=== PATIENT | male | born 1960 | race African-American/Black ===

== ENCOUNTER 2017-05-28 14:51 | Emergency (ER) | payer BC, OTHER ==
[2017-05-28 15:08] VITALS: BP 139/85; PULSE 81; TEMP 98.3; BMI 25.1
--- NOTE | 2017-05-28 16:07 | PDOC ---
History of Present Illness - General Chief Complaint: Pain, Acute Stated Complaint: RIGHT SIDE PAIN Time Seen by Provider: 05/28/17 15:33 History Source: Patient Exam Limitations: No Limitations - History of Present Illness Initial Comments: 05/28/17 17:26 Chief complaint: Right sided torso pain Of present illness: Patient is a 56-year-old male with a history of spontaneous pneumothorax from 2013. 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 Patient denies any shortness of breath, sweating, or any palpitations. Patient reports that pain has been present 3 days. Patient denies any other symptoms. Patient reports when he is sitting doing nothing he does not feel any right lateral torso pain. Pain is reproducible with movement of her torso in exam room. Timing/Duration: intermittent (with lifting only) Severity: moderate Associated Symptoms: reports: other (rt. lateral upper torso pain with lifting items for 3 days). denies: chest pain, cough, diaphoresis, fever/chills, headaches, loss of appetite, malaise, nausea/vomiting, seizure, shortness of breath, syncope, weakness Past History - Past Medical History Allergies/Adverse Reactions: Allergies Allergy/AdvReac Type Severity Reaction Status Date / Time No Known Allergies Allergy Verified 05/28/17 15:05 Home Medications: Ambulatory Orders NK [No Known Home Medication] 10/27/14 Hypercholesterolemia: Yes Other medical history: h/o spontaneous pneumothorax 2013 - Immunization History Immunization Up to Date: Yes - Suicide/Smoking/Psychosocial Hx Smoking History: Current every day smoker Have you smoked in the past 12 months: Yes Number of Cigarettes Smoked Daily: 3 Information on smoking cessation initiated: No 'Breaking Loose' booklet given: 04/12/14 Hx Alcohol Use: No Drug/Substance Use Hx: No Substance Use Type: Alcohol Review of Systems - Review of Systems Able to Perform ROS?: Yes Constitutional: No: Symptoms Reported HEENTM: No: Symptoms Reported Respiratory: No: Symptoms reported Cardiac (ROS): No: Symptoms Reported ABD/GI: No: Symptoms Reported : No: Symptoms Reported Musculoskeletal: Yes: Muscle Pain (rt. lateral upper torso pain with lifting items x 3 days) Integumentary: No: Symptoms Reported Neurological: No: Symptoms reported *Physical Exam - Vital Signs Last Vital Signs Temp Pulse Resp BP Pulse Ox 98.3 F 81 20 139/85 98 05/28/17 15:05 05/28/17 15:05 05/28/17 15:05 05/28/17 15:05 05/28/17 15:05 - Physical Exam General Appearance: Yes: Appropriately Dressed Respiratory/Chest: positive: Lungs Clear, Normal Breath Sounds. negative: Chest Tender, Respiratory Distress Cardiovascular: positive: Regular Rhythm, Regular Rate, S1, S2 Musculoskeletal: positive: Other (rt. lateral torso minimal tenderness with palpation). negative: CVA Tenderness, CVA Tenderness (R), CVA Tenderness (L), Vertebral Tenderness Integumentary: positive: Normal Color Neurologic: positive: Fully Oriented, Alert, Normal Response, Responsive Medical Decision Making - Medical Decision Making 05/28/17 17:28 05/28/17 17:28 Patient is a 56-year-old male with a history of spontaneous pneumothorax from 2013. 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 Patient denies any shortness of breath, sweating, or any palpitations. Patient reports that pain has been present 3 days. Patient denies any other symptoms. Patient reports when he is sitting doing nothing he does not feel any right lateral torso pain. Pain is reproducible with movement of her torso in exam room. rt. lateral torso pain r/o pneumothorax PLAN: xray chest PA/latera no pneumothorax noted or acute pathology per Dr. Salas 01/07 17:47 pt. to follow up with primary care provider Avoid lifting any heavy items 05/29/17 11:57 *DC/Admit/Observation/Transfer Diagnosis at time of Disposition: Tenderness of torso - Discharge Dispostion Disposition: HOME Condition at time of disposition: Stable - Referrals Referrals: Ron Ivory MD [Primary Care Provider] - - Patient Instructions Additional Instructions: Avoid any heavy lifting of items turn whole torso in direction that you are putting any items Take ibuprofen as needed as directed by marketing community liaison for pain Follow-up with your primary care provider within the next couple of days Return to emergency room if any shortness of breath, or worsening pain Patient voiced understanding of discharge instructions and all questions are answered
== END 2017-05-28 17:35 | disposition home or self-care (01) ==
LOC: JER 14:51
DX: R07.89 Other chest pain (principal); F17.210 Nicotine dependence, cigarettes, uncomplicated; E78.00 Pure hypercholesterolemia, unspecified
CPT/HCPCS: 71020-TC; 99282-25

== ENCOUNTER 2017-09-29 14:48 | Emergency (ER) | payer OTHER ==
[2017-09-29 15:18] VITALS: TEMP 98.2; BMI 26.4
--- NOTE | 2017-09-29 15:20 | PDOC ---
[facility]apid [facility] Evaluation Time Seen by Provider: 09/29/17 15:16 Medical Evaluation: Allergies Allergy/AdvReac Type Severity Reaction Status Date / Time No Known Allergies Allergy Verified 09/29/17 15:16 09/29/17 15:17 57 year old male smoker with history of right PTX s/p chest tube presenting with one week of intermittent right-sided pain, itching in character, 10/10. No shortness of breath. -V/s unremarkable -Breath sounds present and equal bilaterally -CXR -To Main ED for further evaluation
--- NOTE | 2017-09-29 18:11 | PDOC ---
History of Present Illness - General Chief Complaint: Pain, Acute Stated Complaint: RT SIDE PAIN Time Seen by Provider: 09/29/17 15:16 History Source: Patient Exam Limitations: No Limitations - History of Present Illness Initial Comments: 09/29/17 18:00 57-year-old male with history of pneumothorax 2 to the right lobe presents to ED with complaints of itching at the incisional site since this morning and concern since he wants to make sure he does not have a pneumothorax. Patient denies difficulty breathing, irregular breathing, orthopnea, change in chest shape. Patient states did not go his PCP and decided come to the ER for further evaluation. Timing/Duration: 4-6 hours, intermittent Severity: mild Associated Symptoms: reports: denies symptoms Past History - Travel Traveled outside of the country in the last 30 days: No - Past Medical History Allergies/Adverse Reactions: Allergies Allergy/AdvReac Type Severity Reaction Status Date / Time No Known Allergies Allergy Verified 09/29/17 15:16 Home Medications: Ambulatory Orders NK [No Known Home Medication] 10/27/14 Hypercholesterolemia: Yes - Immunization History Immunization Up to Date: Yes - Suicide/Smoking/Psychosocial Hx Smoking History: Current every day smoker Have you smoked in the past 12 months: Yes Number of Cigarettes Smoked Daily: 3 Information on smoking cessation initiated: No 'Breaking Loose' booklet given: 04/12/14 Hx Alcohol Use: No Drug/Substance Use Hx: No Substance Use Type: Alcohol Patient Lives Alone: No Lives with/in: spouse/SO Review of Systems - Review of Systems Able to Perform ROS?: Yes Constitutional: No: Symptoms Reported HEENTM: No: Symptoms Reported Respiratory: No: Symptoms reported Cardiac (ROS): No: Symptoms Reported ABD/GI: No: Symptoms Reported Musculoskeletal: No: Symptoms Reported Integumentary: Yes: Pruritus Neurological: No: Symptoms reported *Physical Exam - Vital Signs Last Vital Signs Temp Pulse Resp BP Pulse Ox 98.2 F 89 18 129/86 98 09/29/17 15:16 09/29/17 15:16 09/29/17 15:16 09/29/17 15:16 09/29/17 15:16 - Physical Exam General Appearance: Yes: Nourished, Appropriately Dressed. No: Apparent Distress Respiratory/Chest: positive: Lungs Clear, Normal Breath Sounds. negative: Respiratory Distress, Accessory Muscle Use, Labored Respiration, Decreased Breath Sounds, Dullness Cardiovascular: positive: Regular Rhythm, Regular Rate. negative: Murmur Gastrointestinal/Abdominal: positive: Soft. negative: Tenderness Extremity: positive: Normal Capillary Refill. negative: Pedal Edema Integumentary: positive: Normal Color, Warm, Moist, Other (2 healed dry incisions to the right chest near the axillary line) Neurologic: positive: Motor Strength 5/5 (ambulatory) Medical Decision Making - Medical Decision Making 09/29/17 18:09 Patient here with complaints of itching to the incisional sites from where he had chest tubes placed secondary to pneumothorax. Patient has no other complaints at this time. Patient ordered a chest x-ray from rapid medical evaluation provider. Patient's x-ray reviewed upon my arrival which showed no signs of pneumonia, pneumothorax or other acute findings. Patient be discharged home with recommendations to use moisturizing cream to dry area *DC/Admit/Observation/Transfer Diagnosis at time of Disposition: Dry skin - Discharge Dispostion Disposition: HOME Condition at time of disposition: Good - Referrals - Patient Instructions Printed Discharge Instructions: DI for Itching Additional Instructions: Apply moisturizing cream to the area twice a day to alleviate your symptoms. - Post Discharge Activity
[2017-09-29 18:16] VITALS: BP 159/103; PULSE 86
== END 2017-09-29 18:17 | disposition home or self-care (01) ==
LOC: JER 14:48
DX: L85.3 Xerosis cutis (principal); F17.210 Nicotine dependence, cigarettes, uncomplicated; Z87.09 Personal history of other diseases of the respiratory system
CPT/HCPCS: 71046-TC-FY; 99281-25

== ENCOUNTER 2018-02-15 16:35 | Emergency (ER) | payer OTHER ==
[2018-02-15 16:56] VITALS: BMI 24.6
[2018-02-15] MEDS ORDERED: ACETAMINOPHEN 325 MG TABLET (FP) PO ONE (16:57)
--- NOTE | 2018-02-15 16:59 | PDOC ---
[facility] Medical Evaluation Medical Evaluation: Allergies Allergy/AdvReac Type Severity Reaction Status Date / Time No Known Allergies Allergy Verified 02/15/18 16:53 02/15/18 16:53 I have performed a brief in-person evaluation of this patient. The patient presents with a chief complaint of: lower abd pain since today, L>R , no abd surgeries, no f/c, n/v/d, last BM today Pertinent physical exam findings: ++ tenderness in lower abd, mainly Left side, febrile I have ordered the following:UA/labs sent/tylenol The patient will proceed to the ED for further evaluation. 02/15/18 16:57 <Rupali Bernardo - Last Filed: 02/15/18 16:53> Medical Evaluation: Allergies Allergy/AdvReac Type Severity Reaction Status Date / Time No Known Allergies Allergy Verified 02/15/18 16:53 Vital Signs Temp Pulse Resp BP Pulse Ox 100.0 F H 114 H 18 116/83 100 02/15/18 16:53 02/15/18 16:53 02/15/18 16:53 02/15/18 16:53 02/15/18 16:53 <Kaykay Mallory - Last Filed: 02/15/18 20:49> Time Seen by Provider: 02/15/18 16:53
[2018-02-15] MEDS ORDERED: ACETAMINOPHEN 325 MG TABLET (FP) ONE ×2 (19:15→21:15)
[2018-02-15 19:35] LABS: HEMATOCRIT 41.8 % (35.4-49); HEMOGLOBIN 14.1 GM/dL (11.7-16.9); MCH 32.5 pg (25.7-33.7); MCHC 33.7 g/dl (32.0-35.9); MEAN CELL VOLUME 96.3 fl (80-96); PLATELET COUNT 233 K/MM3 (134-434); RBC 4.34 M/mm3 (4.00-5.60); RDW 13.1 % (11.9-15.9); WHITE BLOOD COUNT 16.2 K/mm3 (4.0-10.0)
[2018-02-15 19:52] LABS: INR 1.06 (0.82-1.09)
[2018-02-15 20:03] LABS: URINE APPEARANCE CLEAR; URINE BILIRUBIN NEGATIVE (<2.0 mg/dL); URINE COLOR YELLOW; URINE GLUCOSE (UA) NEGATIVE (NEGATIVE); URINE KETONE NEGATIVE (NEGATIVE); URINE LEUK ESTERASE NEGATIVE (NEGATIVE); URINE NITRITE NEGATIVE (NEGATIVE); URINE PROTEIN NEGATIVE (NEGATIVE)
[2018-02-15 20:11] LABS: ALK PHOS 76 U/L (45-117); ANION GAP 9 (8-16); BILIRUBIN,DIRECT 0.2 mg/dL (0.0-0.2); BILIRUBIN,TOTAL 0.9 mg/dL (0.2-1.0); BLOOD UREA NITROGEN 12 mg/dL (7-18); CHLORIDE 104 mmol/L (98-107); CO2 25 mmol/L (21-32); GLUCOSE,RANDOM 129 mg/dL (74-106); POTASSIUM 4.1 mmol/L (3.5-5.1); SGOT/AST 42 U/L (15-37); SGPT/ALT 56 U/L (12-78); SODIUM 138 mmol/L (136-145); TOT PROT 7.4 g/dl (6.4-8.2)
[2018-02-15] MEDS ORDERED: SODIUM CHLORIDE 1,000 ML IV STA (20:50)
--- NOTE | 2018-02-15 20:50 | PDOC ---
History of Present Illness - General History Source: Patient, Old Records Exam Limitations: No Limitations - History of Present Illness Initial Comments: 02/15/18 20:50 The patient is a 58 year old male with a past medical history hyperlipidemia and spontaneous pneumothorax who presents to the emergency department with fever and abdominal pain for 10 hours. The patient describes his abdominal pain as bilateral lower. He reports that his fever is Tmax 100. He endorses associated diaphoresis. He denies diarrhea, vomiting, nausea, and back pain. Surgical History: No history of abdominal surgeries <Kevin Mohr - Last Filed: 02/15/18 23:59> <Kaykay Mallory - Last Filed: 02/16/18 00:32> - General Chief Complaint: Pain Stated Complaint: STOMACH PAIN Time Seen by Provider: 02/15/18 16:53 Past History <Kevin Mohr - Last Filed: 02/15/18 23:59> - Past Medical History COPD: No Hypercholesterolemia: Yes - Immunization History Immunization Up to Date: Yes - Suicide/Smoking/Psychosocial Hx Smoking History: Current every day smoker Have you smoked in the past 12 months: Yes Number of Cigarettes Smoked Daily: 3 Cigars Per Day: 2 Information on smoking cessation initiated: Yes 'Breaking Loose' booklet given: 02/15/18 Hx Alcohol Use: No Drug/Substance Use Hx: No Substance Use Type: Alcohol <Kaykay Mallory - Last Filed: 02/16/18 00:32> - Past Medical History Allergies/Adverse Reactions: Allergies Allergy/AdvReac Type Severity Reaction Status Date / Time No Known Allergies Allergy Verified 02/15/18 16:53 Home Medications: Ambulatory Orders levoFLOXacin [Levaquin -] 500 mg PO DAILY #7 tablet 02/16/18 metroNIDAZOLE [Flagyl -] 250 mg PO TID #21 tablet 02/16/18 Review of Systems - Review of Systems Able to Perform ROS?: Yes Comments:: 02/15/18 20:50 CONSTITUTIONAL: (+) Fever, diaphoresis Absent: no chills, no fatigue EYES: Absent: visual changes ENT: Absent: ear pain, no sore throat CARDIOVASCULAR: Absent: chest pain, no palpitations RESPIRATORY: Absent: cough, no SOB GI: (+) Abdominal pain Absent: no nausea, no vomiting, no constipation, no diarrhea GENITOURINARY: Absent: dysuria, no frequency, no hematuria MUSCULOSKELETAL: Absent: back pain, no arthralgia, no myalgia SKIN: Absent: rash NEURO: Absent: headache <Kevin Mohr - Last Filed: 02/15/18 23:59> *Physical Exam - Vital Signs Last Vital Signs Temp Pulse Resp BP Pulse Ox 100.0 F H 114 H 18 116/83 100 02/15/18 16:53 02/15/18 16:53 02/15/18 16:53 02/15/18 16:53 02/15/18 16:53 - Physical Exam Comments: 02/15/18 20:51 GENERAL: Well-appearing, well-nourished. No apparent distress. HEENT: Normocephalic, atraumatic. PERRL, EOM intact. CARDIOVASCULAR: Normal S1, S2. Regular rate and rhythm. PULMONARY: Clear to auscultation bilaterally. ABDOMEN: Soft, non-distended, non-tender. EXTREMITIES: Normal ROM in all four extremities. No gross deformities. SKIN: Warm, dry. No rash NEUROLOGICAL: No focal neurological deficits. <Kevin Mohr - Last Filed: 02/15/18 23:59> - Vital Signs Last Vital Signs Temp Pulse Resp BP Pulse Ox 100.0 F H 114 H 18 116/83 100 02/15/18 16:53 02/15/18 16:53 02/15/18 16:53 02/15/18 16:53 02/15/18 16:53 <Kaykay Mallory - Last Filed: 02/16/18 00:32> ED Treatment Course - LABORATORY CBC & Chemistry Diagram: 02/15/18 19:23 02/15/18 19:23 - ADDITIONAL ORDERS Additional order review: Laboratory Results 02/15/18 02/15/18 02/15/18 19:25 19:23 19:23 PT with INR 12.00 INR 1.06 Sodium 138 Potassium 4.1 Chloride 104 Carbon Dioxide 25 Anion Gap 9 BUN 12 Creatinine 1.0 Creat Clearance w eGFR > 60 Random Glucose 129 H Calcium 9.0 Total Bilirubin 0.9 Direct Bilirubin 0.2 AST 42 H D ALT 56 D Alkaline Phosphatase 76 Total Protein 7.4 Albumin 4.0 Urine Color Yellow Urine Appearance Clear Urine pH 5.0 Ur Specific [place] 1.020 Urine Protein Negative Urine Glucose (UA) Negative Urine Ketones Negative Urine Blood Negative Urine Nitrite Negative Urine Bilirubin Negative Urine Urobilinogen 2.0 Ur Leukocyte Esterase Negative 02/15/18 19:23 RBC 4.34 MCV 96.3 H MCHC 33.7 RDW 13.1 MPV 9.0 - RADIOLOGY Radiograph Interpretation: 02/16/18 00:01 EXAM: ABDOMEN \T\ PELVIS CT WITH CONTR HISTORY: Fever and low abdominal pain COMPARISON: None. FINDINGS: A small left lower lobe bulla and mild bibasilar subsegmental atelectasis The visualized cardiac chambers are normal size and configuration. Normal liver, gallbladder, pancreas, spleen, adrenal glands and kidneys. The stomach and small bowel are normal. There is mild inflammation of the sigmoid colon with associated diverticulosis, consistent with diverticulitis. No bowel obstruction abscess or free air. There is no aortic aneurysm. There is no significant retroperitoneal lymphadenopathy. The appendix is normal. The urinary bladder and prostate gland are normal. Small amount of CONFIDENTIALITY NOTICE: This information is intended only for the use of the recipient(s) named above. If you are not the intended recipient, or a person responsible for delivering it to the intended recipient, you are hereby notified that any disclosure, copying, distribution or use of any of the information contained in or attached to this transmission is STRICTLY PROHIBITED. If you have received this transmission in error, please immediately notify [facility] and destroy the original transmission and its attachments without saving them in any manner pelvic free fluid is identified. There is no significant pelvic lymphadenopathy. IMPRESSION: Uncomplicated mild sigmoid diverticulitis. Individualized dose optimization techniques were used for this CT. THIS DOCUMENT HAS BEEN ELECTRONICALLY SIGNED Marques Solis MD 02/15/2018 23:53 EST - Medications Given in the ED: ED Medications Discontinued Medications Generic Name Dose Route Start Last Admin Trade Name Freq PRN Reason Stop Dose Admin Acetaminophen 650 mg 02/15/18 16:57 02/15/18 19:17 Tylenol - PO 02/15/18 16:58 650 mg ONCE ONE Administration <Kevin Mohr - Last Filed: 02/15/18 23:59> - LABORATORY CBC & Chemistry Diagram: 02/15/18 19:23 02/15/18 19:23 - ADDITIONAL ORDERS Additional order review: Laboratory Results 02/15/18 02/15/18 02/15/18 19:25 19:23 19:23 PT with INR 12.00 INR 1.06 Sodium 138 Potassium 4.1 Chloride 104 Carbon Dioxide 25 Anion Gap 9 BUN 12 Creatinine 1.0 Creat Clearance w eGFR > 60 Random Glucose 129 H Calcium 9.0 Total Bilirubin 0.9 Direct Bilirubin 0.2 AST 42 H D ALT 56 D Alkaline Phosphatase 76 Total Protein 7.4 Albumin 4.0 Urine Color Yellow Urine Appearance Clear Urine pH 5.0 Ur Specific [place] 1.020 Urine Protein Negative Urine Glucose (UA) Negative Urine Ketones Negative Urine Blood Negative Urine Nitrite Negative Urine Bilirubin Negative Urine Urobilinogen 2.0 Ur Leukocyte Esterase Negative 02/15/18 19:23 RBC 4.34 MCV 96.3 H MCHC 33.7 RDW 13.1 MPV 9.0 - RADIOLOGY Radiology Studies Ordered: Category Date Time Status ABDOMEN & PELVIS CT WITH CONTR [CT] Stat CT Scan 02/15/18 20:37 Ordered - Medications Given in the ED: ED Medications Discontinued Medications Generic Name Dose Route Start Last Admin Trade Name Freq PRN Reason Stop Dose Admin Acetaminophen 650 mg 02/15/18 16:57 02/15/18 19:17 Tylenol - PO 02/15/18 16:58 650 mg ONCE ONE Administration <Kaykay Mallory - Last Filed: 02/16/18 00:32> Medical Decision Making - Medical Decision Making 02/16/18 00:04 57-year-old male who denies any significant past medical history presents with 1 day of lower abdominal pain and fever. His primary care doctor's Dr. Tacho Stephens He denied any vomiting or diarrhea. He does have a leukocytosis of 16,000. CAT scan of the abdomen and pelvis showed that he had mild inflammation of the sigmoid colon with associated diverticulosis, consistent with diverticulitis. No bowel obstruction, no abscess, no free air. There was no significant retroperitoneal lymphadenopathy. There was a normal appendix Urinary bladder and prostate gland were normal. There was no significant pelvic lymphadenopathy Patient has no nausea or vomiting and can take medications by mouth. I explained to him that he had a fever, white count and we can admit for diverticulitis. However, he does not want admission and states he will take his antibiotics and follow-up with Dr. Tacho Stephens 02/16/18 00:31 <Kaykay Mallory - Last Filed: 02/16/18 00:32> *DC/Admit/Observation/Transfer - Attestations Scribe Attestion: 02/15/18 20:51 Documentation prepared by Kevin Mohr, acting as medical collector for Kaykay Mallory MD. <Kevin Mohr - Last Filed: 02/15/18 23:59> <Kaykay Mallory - Last Filed: 02/16/18 00:32> Diagnosis at time of Disposition: Diverticulitis - Discharge Dispostion Disposition: HOME Condition at time of disposition: Stable - Prescriptions Prescriptions: levoFLOXacin [Levaquin -] 500 mg PO DAILY #7 tablet metroNIDAZOLE [Flagyl -] 250 mg PO TID #21 tablet - Referrals Referrals: Tacho Ivory MD [Primary Care Provider] - - Patient Instructions Printed Discharge Instructions: DI for Diverticulitis Additional Instructions: 1. Please strip picker your medications and take them as directed 2-please call Dr Tacho Ivory's office and make an appointment within the next 7-10 days 3-Return for any worsening symptoms 4-You may take tylenol for fevers 5-Drink water and keep hydrated - Post Discharge Activity Forms/Work/School Notes: Back to Work
[2018-02-16 01:00] VITALS: BP 125/68; PULSE 88; TEMP 98.9
== END 2018-02-16 01:00 | disposition home or self-care (01) ==
LOC: JER 16:35
PROC: 3E0337Z Introduction of Electrolytic and Water Balance Substance into Peripheral Vein, Percutaneous Approach (ICD-10-PCS; principal; 2018-02-15)
PROC: 3E03329 Introduction of Other Anti-infective into Peripheral Vein, Percutaneous Approach (ICD-10-PCS; 2018-02-15)
DX: K57.92 Diverticulitis of intestine, part unspecified, without perforation or abscess without bleeding (principal)
CPT/HCPCS: 36415; 74177-TC; 80048; 80076; 81003; 85027; 85610; 99283-25; J7030